=== PATIENT | female | born 1995 | race Asian ===

== ENCOUNTER 2017-05-13 16:13 | Emergency (ER) | payer OTHER | END 2017-05-13 22:53 | disposition home or self-care (01) | LOC: FTE 16:13 | DX: S82.841A Displaced bimalleolar fracture of right lower leg, initial encounter for closed fracture (principal); V00.131A Fall from skateboard, initial encounter; Y92.330 Ice skating rink (indoor) (outdoor) as the place of occurrence of the external cause | CPT/HCPCS: 29515; 73610-RT; 99283-25 ==

== ENCOUNTER 2017-06-07 13:46 | Day surgery (SDC) | payer OTHER ==
[2017-06-07] MEDS ORDERED: FENTAnyl 50 MCG/ML VIAL (15:13)
[2017-06-07] MEDS ORDERED: PROPOFOL 20 ML (15:13)
[2017-06-07] MEDS ORDERED: ONDANSETRON 4 MG INJ (15:13)
[2017-06-07] MEDS ORDERED: NEOSTIGMINE 3 MG/3 ML SYRINGE (15:13)
[2017-06-07] MEDS ORDERED: ROCURONIUM 50 MG INJ (15:13)
[2017-06-07] MEDS ORDERED: GLYCOPYRROLATE 0.4 MG INJ (15:13)
[2017-06-07] MEDS ORDERED: MIDAZOLAM 1 MG/ML 2 ML INJ (15:13)
[2017-06-07] MEDS ORDERED: CEFAZOLIN 1 GM INJ (15:13)
[2017-06-07] MEDS ORDERED: DEXAMETHASONE 4 MG/ML 1 ML INJ (15:14)
[2017-06-07] MEDS ORDERED: ROPIVACAINE 0.5 % 30 ML VIAL ×2 (15:14→15:42)
[2017-06-07] MEDS ORDERED: POLYMYXIN/BACITRACIN 1L IRRIG (15:42)
[2017-06-07] MEDS: POLYMYXIN/BACITRACIN 1L IRRIG (16:55)
[2017-06-07] MEDS ORDERED: LABETALOL HCL 20MG INJ IV (18:00)
[2017-06-07] MEDS ORDERED: ALBUTEROL 0.083% (NEB) 2.5 MG/3 ML AMP HHN (18:00)
[2017-06-07] MEDS ORDERED: HYDROmorphONE (0.2 MG/ML) 10ML SYG IV ×3 (18:00)
[2017-06-07] MEDS ORDERED: DIPHENHYDRAMINE 50 MG INJ IV (18:00)
[2017-06-07] MEDS ORDERED: TRIMETHOBENZAMIDE 100 MG/ML VIAL IM (18:00)
[2017-06-07] MEDS ORDERED: IPRATROPIUM (NEB) 0.5 MG/2.5 ML AMP HHN (18:00)
[2017-06-07] MEDS ORDERED: FENTAnyl 50 MCG/ML VIAL IV (18:00)
[2017-06-07] MEDS ORDERED: hydrALAzine 20 MG INJ IV (18:00)
[2017-06-07] MEDS ORDERED: MEPERIDINE 25 MG INJ IV (18:00)
[2017-06-07] MEDS ORDERED: EPHEDrine SULFATE 50 MG/5 ML SYG IV (18:00)
[2017-06-07] MEDS ORDERED: OXYCODONE/ACETAMINOPHEN (5/325) TAB PO ×2 (18:00)
[2017-06-07] MEDS ORDERED: MIDAZOLAM 1 MG/ML 2 ML INJ IV (18:00)
[2017-06-07] MEDS ORDERED: SUGAMMADEX SODIUM 200 MG/2 ML VIAL IV (19:28)
[2017-06-07] MEDS: NEOMYC/POLYMYX/BACIT 30 GM OINT (19:35)
[2017-06-07] MEDS ORDERED: morphine 2 MG INJ IV (20:30)
[2017-06-07] MEDS: ONDANSETRON 4 MG INJ IV (20:53)
[2017-06-07] MEDS: FENTAnyl 50 MCG/ML VIAL IV ×2 (20:53→21:07)
== END 2017-06-07 21:58 | disposition home or self-care (01) ==
LOC: SDS 13:46
DX: S82.841A Displaced bimalleolar fracture of right lower leg, initial encounter for closed fracture (principal); S93.491A Sprain of other ligament of right ankle, initial encounter; X58.XXXA Exposure to other specified factors, initial encounter; M65.871 Other synovitis and tenosynovitis, right ankle and foot; M24.071 Loose body in right ankle; E66.9 Obesity, unspecified; Z68.34 Body mass index [BMI] 34.0-34.9, adult; Z87.891 Personal history of nicotine dependence
CPT/HCPCS: 27814; 73610-RT; 82306